=== PATIENT | female | born 1935 | race Caucasian/White ===

== ENCOUNTER 2021-05-06 17:21 | Inpatient (IN) | payer MEDICARE ==
[~2021-05-06] VITALS: Ht 154.9 cm; Wt 42.6 kg
[~2021-05-06 17:21] MED LIST: ASPIRIN EC81 MG PO
[2021-05-08 07:34] LABS: BUN/CREATININE RATIO 28 (0-10)
[2021-05-08 07:43] LABS: HEMOGLOBIN 9.5 gm/dl (12.3-15.3); RED BLOOD COUNT 3.12 M/UL (4.00-5.10); WHITE BLOOD COUNT 7.5 K/UL (4.5-11.0)
[2021-05-08] MEDS ORDERED: GABAPENTIN300 MG PO (11:19)
[2021-05-08] MEDS ORDERED: METFORMIN HCL500 MG PO (11:19)
[2021-05-08] MEDS ORDERED: LORATADINE10 MG PO (11:19)
[2021-05-08] MEDS ORDERED: HYDROCODON-ACE1 EAC2 PO (11:19)
[2021-05-08] MEDS ORDERED: CILOSTAZOL100 MG PO (11:21)
[2021-05-09 03:59] LABS: HEMOGLOBIN 9.3 gm/dl (12.3-15.3); RED BLOOD COUNT 3.03 M/UL (4.00-5.10); WHITE BLOOD COUNT 5.8 K/UL (4.5-11.0)
[2021-05-09 04:21] LABS: BUN/CREATININE RATIO 24 (0-10)
[2021-05-10 02:47] LABS: HEMOGLOBIN 7.9 gm/dl (12.3-15.3); WHITE BLOOD COUNT 6.7 K/UL (4.5-11.0)
[2021-05-10 02:55] LABS: RED BLOOD COUNT 2.55 M/UL (4.00-5.10)
[2021-05-10 03:27] LABS: BUN/CREATININE RATIO 29 (0-10)
[2021-05-11 04:32] LABS: HEMOGLOBIN 7.5 gm/dl (12.3-15.3)
[2021-05-11 04:59] LABS: BUN/CREATININE RATIO 24 (0-10)
[2021-05-12 03:39] LABS: HEMOGLOBIN 7.7 gm/dl (12.3-15.3)
[2021-05-12 03:52] LABS: BUN/CREATININE RATIO 30 (0-10)
[2021-05-12] MEDS ORDERED: HYDROCODON-ACE1 EAC2 PO (09:19)
[2021-05-12] MEDS ORDERED: STIMULANT LAXA1 EACH PO (09:19)
[2021-05-12] MEDS ORDERED: ELIQUIS 2.5 MG2.5 MG PO (09:19)
[2021-05-12] MEDS ORDERED: FEOSOL325 MG PO (09:24)
== END 2021-05-12 13:10 | disposition home health service (06) | DRG 521 ==
LOC: M/S 17:21
PROVIDERS: Internal Medicine; ADMIT Internal Medicine
PROC: B24BZZZ Ultrasonography of Heart with Aorta (ICD-10-PCS; 2021-05-08)
PROC: 0SRR0JZ Replacement of Right Hip Joint, Femoral Surface with Synthetic Substitute, Open Approach (ICD-10-PCS; 2021-05-08)
PROC: 5A09457 Assistance with Respiratory Ventilation, 24-96 Consecutive Hours, Continuous Positive Airway Pressure (ICD-10-PCS; principal; 2021-05-09)
DX: S72.031A Displaced midcervical fracture of right femur, initial encounter for closed fracture (principal); E43 Unspecified severe protein-calorie malnutrition; G92.8 Other toxic encephalopathy; F11.20 Opioid dependence, uncomplicated; E87.1 Hypo-osmolality and hyponatremia; I50.32 Chronic diastolic (congestive) heart failure; D62 Acute posthemorrhagic anemia; Z68.1 Body mass index [BMI] 19.9 or less, adult; Z66 Do not resuscitate; W01.0XXA Fall on same level from slipping, tripping and stumbling without subsequent striking against object, initial encounter; F17.200 Nicotine dependence, unspecified, uncomplicated; Z20.822 Contact with and (suspected) exposure to COVID-19; E03.9 Hypothyroidism, unspecified; H91.90 Unspecified hearing loss, unspecified ear; E11.40 Type 2 diabetes mellitus with diabetic neuropathy, unspecified; Z96.611 Presence of right artificial shoulder joint; D64.9 Anemia, unspecified; Z96.642 Presence of left artificial hip joint; J44.9 Chronic obstructive pulmonary disease, unspecified; I49.3 Ventricular premature depolarization; E86.0 Dehydration; R53.81 Other malaise; R01.1 Cardiac murmur, unspecified; G89.4 Chronic pain syndrome; K59.00 Constipation, unspecified; I11.0 Hypertensive heart disease with heart failure; Z90.710 Acquired absence of both cervix and uterus; Z79.899 Other long term (current) drug therapy; Z88.0 Allergy status to penicillin; Z82.49 Family history of ischemic heart disease and other diseases of the circulatory system; Z83.3 Family history of diabetes mellitus; Y92.091 Bathroom in other non-institutional residence as the place of occurrence of the external cause; Z79.82 Long term (current) use of aspirin; I95.9 Hypotension, unspecified
CPT/HCPCS: ECHO; 36415; 36600; 71045; 73502; 73552; 76000; 80048; 80053; 82550; 82553; 82607; 82746; 82803; 82962; 83036; 83735; 84100; 84439; 84443; 84484; 84550; 85014; 85018; 85027; 85610; 85730; 86850; 86900; 86901; 93005; 93306; 97110-GP-CQ; 97162; 97166; 97530-GP-CQ; C1776; J0690; J1100; J2250; J2405; J2795; J3010; J3475; J7030; J7050; J7120